=== PATIENT | male | born 1995 | race African-American/Black ===

== ENCOUNTER 2020-10-23 03:11 | Emergency (ER) | payer OTHER, SELFPAY ==
--- NOTE | ~2020-10-23 | XR_ITS ---
EXAMINATION: XR ankle LT 2V EXAM DATE: 10/23/2020 04:01 INDICATION: Fracture. TECHNIQUE: Frontal and lateral projections of the left ankle. There is no prior study for compariso n. FINDINGS: There is an acute closed posttraumatic spiral fracture through the left tibial distal meta diaphysis, with several small comminuted fragments. There is near complete shaft width lateral displa cement. Corresponding proximal fibular fracture on left knee x-ray. The ankle mortise appears intact. IMPRESSION: Left tibial distal metadiaphyseal fracture, lateral displacement. Reviewed, dictated and finalized at location A. STANT PUBLIC DEFENDER
--- NOTE | ~2020-10-23 | XR_ITS ---
EXAMINATION: XR knee LT 2V EXAM DATE: 10/23/2020 04:13 INDICATION: Trauma, left knee pain. TECHNIQUE: Frontal and lateral projections of the left knee. Correlation is made to left ankle exam same date. FINDINGS: Acute closed posttraumatic laterally displaced fracture of the left fibular proximal metad iaphysis. There is overlying soft tissue swelling. No knee joint effusion. IMPRESSION: Acute left fibular proximal diaphyseal fracture, lateral displacement. Reviewed, dictated and finalized at location A. RIBUTION ANALYST IMPRESSION: Acute left fibular proximal diaphyseal fracture, lateral displacem ent.
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
--- NOTE | ~2020-10-23 | CT_ITS ---
EXAMINATION: CT facial bones wo [facility] EXAM DATE: 10/23/2020 03:53 INDICATION: Injury, facial pain. TECHNIQUE: Spiral CT of the facial bones was acquired in the axial plane without contrast. Coronal reformatted images were also reviewed. The dose-length product (DLP) for this examination was 290.42 mGy-cm. The exposure was tailored according to patient size, and iterative reconstruction (ASIR) wa s used as additional dose reduction technique. There is no prior study for comparison. FINDINGS: There is moderate rightward nasal septal deviation. Acute minimally displaced nasal septal fracture. Acute mildly depressed left nasal bone fracture. Mandible, sinuses, orbits are intact. The orbits, globes and extraocular muscles are unremarkable. There is large left temporal scalp and le ft facial swelling. Right upper incisor, tooth #8 as apical lucency, could be infection. Small maxil sancho sinus retention cysts. IMPRESSION: 1. Acute left nasal bone fracture. 2. Acute nasal septal fracture. 3. Large amount of left temporal and facial swelling. 4. Right upper incisor periapical lucency, could be infection. Reviewed, dictated and finalized at location A. UARY PAINTER
--- NOTE | 2020-10-23 03:28 | PC.NURSE ---
Charge Nurse notified and Hemanth POSADA contacted.
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
[2020-10-23 03:29] VITALS: BP 120/83; PULSE 91; RESP 14; TEMP 36.5; O2SAT 100
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
[2020-10-23] MEDS: ONDANSETRON INJ 4 MG/2 ML VIAL IV PUSH (04:30)
[2020-10-23] MEDS: MORPHINE SULFATE (*CRX) 4 MG/ML INJ IV PUSH ×2 (04:30→05:31)
[2020-10-23 04:45] VITALS: BP 133/84; PULSE 75; RESP 14; O2SAT 95
[2020-10-23 04:47] LABS: Basophils Percent Auto 0.1 % (0.2-1.2); Eosinophils Percent Auto 0.1 % (0-4.4); Hematocrit 39.4 % (42.0-52.0); Hemoglobin 13.6 g/dL (14.0-18.0); Immature Granulocyte Absolute 0.07 K/mm3 (0.00-0.031); Immature Granulocyte Percent A 0.5 % (0-0.5); Lymphocytes Absolute Auto 1.34 K/mm3 (0.9-3.2); Lymphocytes Percent Auto 8.7 % (18.3-44.2); Mean Corpuscular HGB Conc 34.5 g/dl (32-36); Mean Corpuscular Hemoglobin 33.3 pg (26-34); Mean Corpuscular Volume 96.6 fl (80-100); Mean Platelet Volume 10.2 fl (7.4-10.4); Monocytes Percent Auto 6.4 % (2.6-8.5); Neutrophils Percent Auto 84.2 % (45.5-73.1); Platelet Count Result 228 k/mm3 (150-375); Red Blood Count 4.08 M/mm3 (4.6-6.20); White Blood Count 15.4 K/mm3 (4.5-10.0)
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
[2020-10-23 05:00] VITALS: TEMP 36.5
[2020-10-23 05:03] LABS: Alanine Aminotransferase 17 U/L (4-50); Albumin Level 4.1 g/dL (3.5-5.1); Alkaline Phosphatase 47 U/L (38-126); Anion Gap 5 mmol/L (8-16); Aspartate Amino Transferase 40 U/L (17-59); Bilirubin,Total 0.7 mg/dL (0.2-1.3); Blood Urea Nitrogen 23 mg/dL (9-20); Calcium 9.2 mg/dL (8.4-10.2); Carbon Dioxide 28 mmol/L (22-30); Chloride 107 mmol/L (98-107); Estimated CRCL calculation 109 ml/min; Estimated Glomerular Filt Rate > 60; Glucose 105 mg/dL (75-110); Potassium 3.7 mmol/L (3.4-5.0); Sodium 140 mmol/L (137-145)
[2020-10-23] MEDS: TETANUS,DIPHTHERIA,AC PERTUSSIS ADULT (0.5 ML) BOOSTRIX IM (05:10)
[2020-10-23 05:36] VITALS: BP 126/77; PULSE 71; RESP 16; O2SAT 97
[2020-10-23 06:01] VITALS: TEMP 36.5
[2020-10-23 06:58] VITALS: BP 131/80; PULSE 72; RESP 16; TEMP 36.7; O2SAT 97
== END 2020-10-23 07:02 | disposition short-term general hospital (02) ==
PROVIDERS: Emergency Provider Emergency Medicine
DX: S89.192A Other physeal fracture of lower end of left tibia, initial encounter for closed fracture (principal); S89.292A Other physeal fracture of upper end of left fibula, initial encounter for closed fracture; S02.2XXA Fracture of nasal bones, initial encounter for closed fracture; Y04.0XXA Assault by unarmed brawl or fight, initial encounter; Z23 Encounter for immunization
CPT/HCPCS: 29505; 36415; 70486; 73130; 73560; 73600; 80053; 85025; 90471; 90715; 96374; 96375; 96376; 99285; J2270; J2405